=== PATIENT | male | born 1980 | race Caucasian/White ===

== ENCOUNTER 2022-10-07 16:30 | Outpatient (RCR) | payer OTHER, SELFPAY ==
--- NOTE | 2022-07-08 16:00 | PT.OIE ---
Current Diagnoses Stiffness of right hip, not elsewhere classified (07/08/22) Stiffness of other specified joint, not elsewhere classified (07/08/22) Dorsalgia, unspecified (07/08/22) Visit Care Team Role Provider Type Marquez Mao Family Provider Non-Staff Primary Care Provider Specialty: Medical Address: [address] [place] [address], [id number] Email: Attending Provider Referring Provider Specialty: Address: Phone: Fax: Email: Physical Therapy Initial Evaluation PT-OP-A Visit Information Start: 07/08/22 17:38 Freq: Status: Active Protocol: Document 07/08/22 15:15 DCW (Rec: 07/08/22 17:58 [facility] [id number]) Out-Patient Physical Therapy Visit Information Visit Information Visit Type Initial Evaluation Visit Start Time 15:15 Visit Stop Time 16:00 Total Visit Minutes 45 Visit Number 1 Number of STRIPING MACHINE OPERATOR Visits 0 Evaluation Information Evaluation Date 07/08/22 PT-OP-B Current Condition Start: 07/08/22 17:38 Freq: Status: Active Protocol: Document 07/08/22 15:15 DCW (Rec: 07/08/22 17:58 DC [id number]) Current Condition History of Current Condition Onset Date ~2015 Current Complaints Low back pain History of Current Condition Pt is a 42 year old male presenting with a ~7 year history of low back pain, unsure shat exactly causes it, however he does know that recently lifting his three year old has been making him feel worse. Notices he is no longer able to sleep on his stomach due to pain, and he is at his worst first thing in the morning or after an extended period of not moving. Pt also notes sitting in a softer chair is significantly worse. Pt reports two episodes of a more intense flare-up over the past year, both of which laid me up for about a week. Pt finds that being more active is helpful, especially when he goes out running, although admits that after he runs, he typically spends about 30 minutes stretching, which might be what is actually helping to loosen him up. Prior Treatments and Tests Pt reports no imaging, has been given muscle relaxors, does not feel like they did much. 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 PT-OP-C Subjective Start: 07/08/22 17:38 Freq: Status: Active Protocol: Document 07/08/22 15:15 DCW (Rec: 07/08/22 17:58 DCW [id number]) OP-PT Subjective Patient Comments Patient Comments It's actually not too bad right now. I originally got a referral to come in April, but then I was doing some travel, and then we had an illness going through or house , so it took a while for me to get in. Patient Reported Progress Improving Patient Questionnaires Oswestry Low Back Index Oswestry Score 650 = 12% Oswestry Impairment 1 to 19% Impaired (Score 1-19) OP-PT Pain Assessment Pain Assessment Grid Paper Pain Assessment Grid Completed Yes Location Bilateral Lower Back Intensity 3 Scale Used Numeric (0 - 10) Description Aching,Dull,Tightness PT-OP-F Manual Assessment Start: 07/08/22 17:38 Freq: Status: Active Protocol: Document 07/08/22 15:15 DCW (Rec: 07/09/22 09:39 DCW [id number]) Manual Assessments Soft Tissue Assessment Soft Tissue Mobility Assessment Noticeable swelling and inflammation along right side, immediately lateral to lumbar spine, as well as moderate tone with tenderness to palpation 2/4: pain with wincing. Additionally increased tone in right low back, posterior obliques and QL. Joint Mobility Assessment Joint Mobility Assessment Tenderness in lumbar vertebrae , specifically L3 with P->A mobilization PT-OP-K Range of Motion Start: 07/08/22 17:38 Freq: Status: Active Protocol: Document 07/08/22 15:15 DCW (Rec: 07/08/22 17:58 DCW [id number]) Lumbar Spine Range of Motion Lumbar Spine Active Degrees Testing Position Standing Flexion 60 Extension 10 Lateral Flexion Left 54 Lateral Flexion Right 55 Comments Lateral flexion measured in cm from floor to finger tips Hip Goniometric Range of Motion Hip Right Passive Testing Position Supine Internal Rotation 20 External Rotation 30 Left Passive Testing Position Supine Internal Rotation 35 External Rotation 30 PT-OP-L Special Tests Start: 07/08/22 17:38 Freq: Status: Active Protocol: Document 07/08/22 15:15 DCW (Rec: 07/09/22 09:39 DCW [id number]) Special Tests Lumbar Spine Special Tests Straight Leg Raise Test Results Positive R ipsilateral lumbar pain Standing Flexion Test Results Negative Slump Test Results Positive R lumbar pain Compression Test Results Positive R lumbar pain during left side-bending Manual Traction Test Results Negative A-P Shearing Test Results Positive R lumbar pain Hip Special Tests AJAY Test Results Positive R ipsilateral lumbar pain PT-OP-Q Treatments Start: 07/08/22 17:38 Freq: Status: Active Protocol: Document 07/08/22 15:15 DCW (Rec: 07/08/22 17:58 DCW [id number]) Therapeutic Exercises Sidelying Exercises Clamshell Sidelying Exercise Name Clamshell Resistance Lv 3 PT-OP-T Assessment and Plan Start: 07/08/22 17:38 Freq: Status: Active Protocol: Document 07/08/22 15:15 DCW (Rec: 07/09/22 11:07 [facility] [id number]) Physical Therapy Assessment Evaluation Complexity Number of Personal Factors/Comorbidities 0 Number of Body Systems Impaired 3 Clinical Presentation at Evaluation Stable Impairments Impairments Functional Activities, Functional Mobility,Pain,ROM, Soft Tissue Mobility,Strength, Tone Goals Two Impairment Pt has limited right hip ROM Sergeant Missile Crewman Goal (LTG) Pt to demonstrate PROM IR of right hip improved by at least 10?, increased from 20? to 30 ?, in order to improve ability to sit on floor playing with his kids. LTG Duration 09/07/22 One Impairment Pt does not have an appropriate home exercise program Short Term Goal (STG) Pt to be independent and compliant with an appropriate HEP STG Duration 08/08/22 Assessment Summary Assessment Pt presents with signs and symptoms consistent with referring diagnosis. Pt experiences waxing and waning low back pain, and, although he is not in the middle of a flare-up currently, still showing signs of edema and inflammation along the right side of his lumbar spine, increased tone in paraspinals, and limited right hip ROM. Pt will likely benefit from skilled therapy focusing on improving hip and low back mobility, decreasing tone, education on management of inflammation, and instruction on stretching and strengthening of low back and core. Physical Therapy Plan Frequency and Duration Frequency of Treatment 1-2x/week Plan of Care Start Date 07/08/22 Plan of Care End Date 09/07/22 Therapeutic Interventions Therapeutic Interventions Home Exercise Program,Joint Mobilizations,Manual Therapy, Neuromuscular Re-education, Patient/Caregiver Education, Self-Care/Home Management,Soft Tissue Mobilization, Therapeutic Activities, Therapeutic Exercises Modalities Cold Pack/Ice Massage,Hot Packs Next Visit Focus/Plan Next Note Type Treatment Note Next Visit Plan STM, flexibility, core strengthening, hip mobility
--- NOTE | 2022-07-08 16:00 | PT.OPPOC ---
Physical, Occupational & Speech Therapy At [facility] Current Diagnoses Stiffness of right hip, not elsewhere classified (07/08/22) Stiffness of other specified joint, not elsewhere classified (07/08/22) Dorsalgia, unspecified (07/08/22) Visit Care Team Role Provider Type Marquez Mao Family Provider Non-Staff Primary Care Provider Specialty: Medical Address: [address] [place] [address], [id number] Email: Attending Provider Referring Provider Specialty: Address: Phone: Fax: Email: Plan Of Care PT-OP-T Assessment and Plan Start: 07/08/22 17:38 Freq: Status: Active Protocol: Document 07/08/22 15:15 DCW (Rec: 07/09/22 11:07 DCW [id number]) Physical Therapy Assessment Evaluation Complexity Number of Personal Factors/Comorbidities 0 Number of Body Systems Impaired 3 Clinical Presentation at Evaluation Stable Impairments Impairments Functional Activities, Functional Mobility,Pain,ROM, Soft Tissue Mobility,Strength, Tone Goals Two Impairment Pt has limited right hip ROM Airport Security Screener Goal (LTG) Pt to demonstrate PROM IR of right hip improved by at least 10?, increased from 20? to 30 ?, in order to improve ability to sit on floor playing with his kids. LTG Duration 09/07/22 One Impairment Pt does not have an appropriate home exercise program Short Term Goal (STG) Pt to be independent and compliant with an appropriate HEP STG Duration 08/08/22 Assessment Summary Assessment Pt presents with signs and symptoms consistent with referring diagnosis. Pt experiences waxing and waning low back pain, and, although he is not in the middle of a flare-up currently, still showing signs of edema and inflammation along the right side of his lumbar spine, increased tone in paraspinals, and limited right hip ROM. Pt will likely benefit from skilled therapy focusing on improving hip and low back mobility, decreasing tone, education on management of inflammation, and instruction on stretching and strengthening of low back and core. Physical Therapy Plan Frequency and Duration Frequency of Treatment 1-2x/week Plan of Care Start Date 07/08/22 Plan of Care End Date 09/07/22 Therapeutic Interventions Therapeutic Interventions Home Exercise Program,Joint Mobilizations,Manual Therapy, Neuromuscular Re-education, Patient/Caregiver Education, Self-Care/Home Management,Soft Tissue Mobilization, Therapeutic Activities, Therapeutic Exercises Modalities Cold Pack/Ice Massage,Hot Packs Next Visit Focus/Plan Next Note Type Treatment Note Next Visit Plan STM, flexibility, core strengthening, hip mobility Plan of Care Dates Plan of Care Start Date 07/08/22 Plan of Care End Date 09/07/22 Electronically Signed by: Serge Garrett, PT 07/09/22 [id number] If you are in agreement with this Plan of Care, please return a signed and dated copy. I have reviewed this Plan of Care and certify that the skilled therapy services above are required to meet the patient?s needs. Physician Signature Date Printed Name and Credentials Clinical Instructor Signature Printed Name and Credentials
--- NOTE | 2022-07-10 16:02 | PT.OTN ---
Current Diagnoses Stiffness of right hip, not elsewhere classified (07/10/22) Stiffness of other specified joint, not elsewhere classified (07/10/22) Dorsalgia, unspecified (07/10/22) Physical Therapy Treatment Note PT-OP-A Visit Information Start: 07/08/22 17:38 Freq: Status: Active Protocol: Document 07/10/22 15:15 DCW (Rec: 07/10/22 16:02 DCW [id number]) Out-Patient Physical Therapy Visit Information Visit Information Visit Type Treatment Note Visit Start Time 15:15 Visit Stop Time 16:00 Total Visit Minutes 45 Visit Number 2 Number of POLE PEELING MACHINE OPERATOR Visits 0 Evaluation Information Evaluation Date 07/08/22 PT-OP-B Current Condition Start: 07/08/22 17:38 Freq: Status: Active Protocol: Document 07/08/22 15:15 DCW (Rec: 07/08/22 17:58 DCW [id number]) Current Condition History of Current Condition Onset Date ~2015 Current Complaints Low back pain History of Current Condition Pt is a 42 year old male presenting with a ~7 year history of low back pain, unsure shat exactly causes it, however he does know that recently lifting his three year old has been making him feel worse. Notices he is no longer able to sleep on his stomach due to pain, and he is at his worst first thing in the morning or after an extended period of not moving. Pt also notes sitting in a softer chair is significantly worse. Pt reports two episodes of a more intense flare-up over the past year, both of which laid me up for about a week. Pt finds that being more active is helpful, especially when he goes out running, although admits that after he runs, he typically spends about 30 minutes stretching, which might be what is actually helping to loosen him up. Prior Treatments and Tests Pt reports no imaging, has been given muscle relaxors, does not feel like they did much. 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 PT-OP-C Subjective Start: 07/08/22 17:38 Freq: Status: Active Protocol: Document 07/10/22 15:15 DCW (Rec: 07/10/22 16:02 DCW [id number]) OP-PT Subjective Patient Comments Patient Comments It doesn't really feel any different today. PT-OP-F Manual Assessment Start: 07/08/22 17:38 Freq: Status: Active Protocol: Document 07/08/22 15:15 DCW (Rec: 07/09/22 09:39 DCW [id number]) Manual Assessments Soft Tissue Assessment Soft Tissue Mobility Assessment Noticeable swelling and inflammation along right side, immediately lateral to lumbar spine, as well as moderate tone with tenderness to palpation 2/4: pain with wincing. Additionally increased tone in right low back, posterior obliques and QL. Joint Mobility Assessment Joint Mobility Assessment Tenderness in lumbar vertebrae , specifically L3 with P->A mobilization PT-OP-K Range of Motion Start: 07/08/22 17:38 Freq: Status: Active Protocol: Document 07/08/22 15:15 DCW (Rec: 07/08/22 17:58 DCW [id number]) Lumbar Spine Range of Motion Lumbar Spine Active Degrees Testing Position Standing Flexion 60 Extension 10 Lateral Flexion Left 54 Lateral Flexion Right 55 Comments Lateral flexion measured in cm from floor to finger tips Hip Goniometric Range of Motion Hip Right Passive Testing Position Supine Internal Rotation 20 External Rotation 30 Left Passive Testing Position Supine Internal Rotation 35 External Rotation 30 PT-OP-L Special Tests Start: 07/08/22 17:38 Freq: Status: Active Protocol: Document 07/08/22 15:15 DCW (Rec: 07/09/22 09:39 DCW [id number]) Special Tests Lumbar Spine Special Tests Straight Leg Raise Test Results Positive R ipsilateral lumbar pain Standing Flexion Test Results Negative Slump Test Results Positive R lumbar pain Compression Test Results Positive R lumbar pain during left side-bending Manual Traction Test Results Negative A-P Shearing Test Results Positive R lumbar pain Hip Special Tests AJAY Test Results Positive R ipsilateral lumbar pain PT-OP-Q Treatments Start: 07/08/22 17:38 Freq: Status: Active Protocol: Document 07/10/22 15:15 DCW (Rec: 07/10/22 16:02 DCW [id number]) Gym Equipment Therapeutic Ball Pelvic Tilts/Circles Exercise Details Pelvic tilts/circles Ball Size/Color Green - 65 cm Body Position Sitting Resisted Trunk Rotation Exercise Details Resisted Trunk Rotation Ball Size/Color Green - 65 cm Lv 3 Body Position Sitting Comments Slight discomfort during rotation to R LTR Exercise Details LTR Ball Size/Color Red - 55 cm Body Position Supine Therapeutic Exercises Sitting Exercises Pallof Press Sitting Exercise Name Pallof Press Side bilateral Resistance Lv 4 Standing Exercises Extension Standing Exercise Name Hip Extension Side bilateral Resistance Green Abduction Standing Exercise Name Hip Abduction Side bilateral Resistance Green Manual Therapy Treatment Soft Tissue Mobilization Paraspinals Body Location Lumbar Paraspinals Mobilization Type Sustained Pressure,Trigger Point Release Intensity/Depth Moderate Body Position Prone Joint Mobilizations L3 Joint L3 Direction P->A, Rotation Grade II PT-OP-T Assessment and Plan Start: 07/08/22 17:38 Freq: Status: Active Protocol: Document 07/10/22 15:15 DCW (Rec: 07/10/22 16:02 DCW [id number]) Physical Therapy Assessment Impairments Impairments Functional Activities, Functional Mobility,Pain,ROM, Soft Tissue Mobility,Strength, Tone Goals Two Impairment Pt has limited right hip ROM Chcf Goal (LTG) Pt to demonstrate PROM IR of right hip improved by at least 10?, increased from 20? to 30 ?, in order to improve ability to sit on floor playing with his kids. LTG Duration 09/07/22 One Impairment Pt does not have an appropriate home exercise program Short Term Goal (STG) Pt to be independent and compliant with an appropriate HEP STG Duration 08/08/22 Assessment Summary Assessment Pt tolerated treatment very well, continues to show limited mobility of L3 with joint mobilization and with rotation, did well with STM and joint mobility, did have some muscle soreness with resistance exercises. Physical Therapy Plan Frequency and Duration Frequency of Treatment 1-2x/week Plan of Care Start Date 07/08/22 Plan of Care End Date 09/07/22 Therapeutic Interventions Therapeutic Interventions Home Exercise Program,Joint Mobilizations,Manual Therapy, Neuromuscular Re-education, Patient/Caregiver Education, Self-Care/Home Management,Soft Tissue Mobilization, Therapeutic Activities, Therapeutic Exercises Modalities Cold Pack/Ice Massage,Hot Packs Next Visit Focus/Plan Next Note Type Treatment Note Next Visit Plan STM, flexibility, core strengthening, hip mobility
--- NOTE | 2022-07-14 11:15 | PT.OTN ---
Current Diagnoses Stiffness of right hip, not elsewhere classified (07/14/22) Stiffness of other specified joint, not elsewhere classified (07/14/22) Dorsalgia, unspecified (07/14/22) Physical Therapy Treatment Note PT-OP-A Visit Information Start: 07/08/22 17:38 Freq: Status: Active Protocol: Document 07/14/22 10:30 DCW (Rec: 07/14/22 11:14 DCW [id number]) Out-Patient Physical Therapy Visit Information Visit Information Visit Type Treatment Note Visit Start Time 10:30 Visit Stop Time 11:15 Total Visit Minutes 45 Visit Number 3 Number of OUTREACH LIBRARIAN Visits 0 Evaluation Information Evaluation Date 07/08/22 PT-OP-B Current Condition Start: 07/08/22 17:38 Freq: Status: Active Protocol: Document 07/08/22 15:15 DCW (Rec: 07/08/22 17:58 DCW [id number]) Current Condition History of Current Condition Onset Date ~2015 Current Complaints Low back pain History of Current Condition Pt is a 42 year old male presenting with a ~7 year history of low back pain, unsure shat exactly causes it, however he does know that recently lifting his three year old has been making him feel worse. Notices he is no longer able to sleep on his stomach due to pain, and he is at his worst first thing in the morning or after an extended period of not moving. Pt also notes sitting in a softer chair is significantly worse. Pt reports two episodes of a more intense flare-up over the past year, both of which laid me up for about a week. Pt finds that being more active is helpful, especially when he goes out running, although admits that after he runs, he typically spends about 30 minutes stretching, which might be what is actually helping to loosen him up. Prior Treatments and Tests Pt reports no imaging, has been given muscle relaxors, does not feel like they did much. 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 PT-OP-C Subjective Start: 07/08/22 17:38 Freq: Status: Active Protocol: Document 07/14/22 10:30 DCW (Rec: 07/14/22 11:14 DCW [id number]) OP-PT Subjective Patient Comments Patient Comments Admits he is a ittle more stiff today, notes he went rollerskating over the weekend , which created a little bit of soreness. PT-OP-F Manual Assessment Start: 07/08/22 17:38 Freq: Status: Active Protocol: Document 07/08/22 15:15 DCW (Rec: 07/09/22 09:39 DCW [id number]) Manual Assessments Soft Tissue Assessment Soft Tissue Mobility Assessment Noticeable swelling and inflammation along right side, immediately lateral to lumbar spine, as well as moderate tone with tenderness to palpation 2/4: pain with wincing. Additionally increased tone in right low back, posterior obliques and QL. Joint Mobility Assessment Joint Mobility Assessment Tenderness in lumbar vertebrae , specifically L3 with P->A mobilization PT-OP-K Range of Motion Start: 07/08/22 17:38 Freq: Status: Active Protocol: Document 07/08/22 15:15 DCW (Rec: 07/08/22 17:58 DCW [id number]) Lumbar Spine Range of Motion Lumbar Spine Active Degrees Testing Position Standing Flexion 60 Extension 10 Lateral Flexion Left 54 Lateral Flexion Right 55 Comments Lateral flexion measured in cm from floor to finger tips Hip Goniometric Range of Motion Hip Right Passive Testing Position Supine Internal Rotation 20 External Rotation 30 Left Passive Testing Position Supine Internal Rotation 35 External Rotation 30 PT-OP-L Special Tests Start: 07/08/22 17:38 Freq: Status: Active Protocol: Document 07/08/22 15:15 DCW (Rec: 07/09/22 09:39 DCW [id number]) Special Tests Lumbar Spine Special Tests Straight Leg Raise Test Results Positive R ipsilateral lumbar pain Standing Flexion Test Results Negative Slump Test Results Positive R lumbar pain Compression Test Results Positive R lumbar pain during left side-bending Manual Traction Test Results Negative A-P Shearing Test Results Positive R lumbar pain Hip Special Tests AJAY Test Results Positive R ipsilateral lumbar pain PT-OP-Q Treatments Start: 07/08/22 17:38 Freq: Status: Active Protocol: Document 07/14/22 10:30 DCW (Rec: 07/14/22 11:14 DCW [id number]) Gym Equipment Therapeutic Ball Pelvic Tilts/Circles Exercise Details Pelvic tilts/circles Ball Size/Color Green - 65 cm Body Position Sitting Resisted Trunk Rotation Exercise Details Resisted Trunk Rotation Ball Size/Color Green - 65 cm Lv 3 Body Position Sitting Comments Slight discomfort during rotation to R Therapeutic Exercises Sidelying Exercises Open Book Sidelying Exercise Name Open Book Side bilateral Sitting Exercises Pallof Press Sitting Exercise Name Pallof Press Side bilateral Resistance Lv 4 Standing Exercises ER/IR Standing Exercise Name Resisted ER/IR, half kneel on stool Other Exercises Cat/Camel Other Exercise Name Cat/Camel Child's Pose Other Exercise Name Child's Pose Manual Therapy Treatment Soft Tissue Mobilization Paraspinals Body Location Lumbar Paraspinals Mobilization Type Sustained Pressure,Trigger Point Release Intensity/Depth Moderate Body Position Prone Joint Mobilizations L3 Joint L3 Direction P->A, Rotation Grade II PT-OP-T Assessment and Plan Start: 07/08/22 17:38 Freq: Status: Active Protocol: Document 07/14/22 10:30 DCW (Rec: 07/14/22 11:14 DCW [id number]) Physical Therapy Assessment Impairments Impairments Functional Activities, Functional Mobility,Pain,ROM, Soft Tissue Mobility,Strength, Tone Goals Two Impairment Pt has limited right hip ROM Design And Sales Consultant Goal (LTG) Pt to demonstrate PROM IR of right hip improved by at least 10?, increased from 20? to 30 ?, in order to improve ability to sit on floor playing with his kids. LTG Duration 09/07/22 One Impairment Pt does not have an appropriate home exercise program Short Term Goal (STG) Pt to be independent and compliant with an appropriate HEP STG Duration 08/08/22 Assessment Summary Assessment Pt still experiencing some stiffness with all activities that result in right lumbar rotation, but noticeably less tone and inflammation along right paraspinals. Physical Therapy Plan Frequency and Duration Frequency of Treatment 1-2x/week Plan of Care Start Date 07/08/22 Plan of Care End Date 09/07/22 Therapeutic Interventions Therapeutic Interventions Home Exercise Program,Joint Mobilizations,Manual Therapy, Neuromuscular Re-education, Patient/Caregiver Education, Self-Care/Home Management,Soft Tissue Mobilization, Therapeutic Activities, Therapeutic Exercises Modalities Cold Pack/Ice Massage,Hot Packs Next Visit Focus/Plan Next Note Type Treatment Note Next Visit Plan STM, flexibility, core strengthening, hip mobility
--- NOTE | 2022-07-17 15:59 | PT.OTN ---
Current Diagnoses Stiffness of right hip, not elsewhere classified (07/17/22) Stiffness of other specified joint, not elsewhere classified (07/17/22) Dorsalgia, unspecified (07/17/22) Physical Therapy Treatment Note PT-OP-A Visit Information Start: 07/08/22 17:38 Freq: Status: Active Protocol: Document 07/17/22 15:15 DCW (Rec: 07/17/22 15:58 DCW [id number]) Out-Patient Physical Therapy Visit Information Visit Information Visit Type Treatment Note Visit Start Time 15:15 Visit Stop Time 16:00 Total Visit Minutes 45 Visit Number 4 Number of JACQUARD FIXER Visits 0 Evaluation Information Evaluation Date 07/08/22 PT-OP-B Current Condition Start: 07/08/22 17:38 Freq: Status: Active Protocol: Document 07/08/22 15:15 DCW (Rec: 07/08/22 17:58 DCW [id number]) Current Condition History of Current Condition Onset Date ~2015 Current Complaints Low back pain History of Current Condition Pt is a 42 year old male presenting with a ~7 year history of low back pain, unsure shat exactly causes it, however he does know that recently lifting his three year old has been making him feel worse. Notices he is no longer able to sleep on his stomach due to pain, and he is at his worst first thing in the morning or after an extended period of not moving. Pt also notes sitting in a softer chair is significantly worse. Pt reports two episodes of a more intense flare-up over the past year, both of which laid me up for about a week. Pt finds that being more active is helpful, especially when he goes out running, although admits that after he runs, he typically spends about 30 minutes stretching, which might be what is actually helping to loosen him up. Prior Treatments and Tests Pt reports no imaging, has been given muscle relaxors, does not feel like they did much. 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 PT-OP-C Subjective Start: 07/08/22 17:38 Freq: Status: Active Protocol: Document 07/17/22 15:15 DCW (Rec: 07/17/22 15:58 DCW [id number]) OP-PT Subjective Patient Comments Patient Comments Pt notes that Wednesday was worse following his PT appointment on Wednesday, felt it more down his thighs. Has been stretching out some, feeling better today. PT-OP-F Manual Assessment Start: 07/08/22 17:38 Freq: Status: Active Protocol: Document 07/08/22 15:15 DCW (Rec: 07/09/22 09:39 DCW [id number]) Manual Assessments Soft Tissue Assessment Soft Tissue Mobility Assessment Noticeable swelling and inflammation along right side, immediately lateral to lumbar spine, as well as moderate tone with tenderness to palpation 2/4: pain with wincing. Additionally increased tone in right low back, posterior obliques and QL. Joint Mobility Assessment Joint Mobility Assessment Tenderness in lumbar vertebrae , specifically L3 with P->A mobilization PT-OP-K Range of Motion Start: 07/08/22 17:38 Freq: Status: Active Protocol: Document 07/08/22 15:15 DCW (Rec: 07/08/22 17:58 DCW [id number]) Lumbar Spine Range of Motion Lumbar Spine Active Degrees Testing Position Standing Flexion 60 Extension 10 Lateral Flexion Left 54 Lateral Flexion Right 55 Comments Lateral flexion measured in cm from floor to finger tips Hip Goniometric Range of Motion Hip Right Passive Testing Position Supine Internal Rotation 20 External Rotation 30 Left Passive Testing Position Supine Internal Rotation 35 External Rotation 30 PT-OP-L Special Tests Start: 07/08/22 17:38 Freq: Status: Active Protocol: Document 07/08/22 15:15 DCW (Rec: 07/09/22 09:39 DCW [id number]) Special Tests Lumbar Spine Special Tests Straight Leg Raise Test Results Positive R ipsilateral lumbar pain Standing Flexion Test Results Negative Slump Test Results Positive R lumbar pain Compression Test Results Positive R lumbar pain during left side-bending Manual Traction Test Results Negative A-P Shearing Test Results Positive R lumbar pain Hip Special Tests AJAY Test Results Positive R ipsilateral lumbar pain PT-OP-Q Treatments Start: 07/08/22 17:38 Freq: Status: Active Protocol: Document 07/17/22 15:15 DCW (Rec: 07/17/22 15:58 DCW [id number]) Manual Therapy Treatment Soft Tissue Mobilization Paraspinals Body Location Lumbar Paraspinals Mobilization Type Sustained Pressure,Trigger Point Release Intensity/Depth Moderate Body Position Prone Joint Mobilizations L3 Joint L3 Direction P->A, Rotation Grade II Other Other Manual Treatments Contract/Relax resisted Hip hiking for R QL PT-OP-T Assessment and Plan Start: 07/08/22 17:38 Freq: Status: Active Protocol: Document 07/17/22 15:15 DCW (Rec: 07/17/22 15:58 DCW [id number]) Physical Therapy Assessment Impairments Impairments Functional Activities, Functional Mobility,Pain,ROM, Soft Tissue Mobility,Strength, Tone Goals Two Impairment Pt has limited right hip ROM Tractor Technician Goal (LTG) Pt to demonstrate PROM IR of right hip improved by at least 10?, increased from 20? to 30 ?, in order to improve ability to sit on floor playing with his kids. LTG Duration 09/07/22 One Impairment Pt does not have an appropriate home exercise program Short Term Goal (STG) Pt to be independent and compliant with an appropriate HEP STG Duration 08/08/22 Assessment Summary Assessment Focused today more on manual treatment and soft tissue work due to pt complaints of flare -ups following previous PT appointments. Pt working on getting further insurance authorization for PT Physical Therapy Plan Frequency and Duration Frequency of Treatment 1-2x/week Plan of Care Start Date 07/08/22 Plan of Care End Date 09/07/22 Therapeutic Interventions Therapeutic Interventions Home Exercise Program,Joint Mobilizations,Manual Therapy, Neuromuscular Re-education, Patient/Caregiver Education, Self-Care/Home Management,Soft Tissue Mobilization, Therapeutic Activities, Therapeutic Exercises Modalities Cold Pack/Ice Massage,Hot Packs Next Visit Focus/Plan Next Note Type Treatment Note Next Visit Plan STM, flexibility, core strengthening, hip mobility
--- NOTE | 2022-09-07 15:34 | PT.OTN ---
Current Diagnoses Stiffness of right hip, not elsewhere classified (09/07/22) Stiffness of other specified joint, not elsewhere classified (09/07/22) Dorsalgia, unspecified (09/07/22) Physical Therapy Treatment Note PT-OP-A Visit Information Start: 07/08/22 17:38 Freq: Status: Active Protocol: Document 09/07/22 14:45 DCW (Rec: 09/07/22 15:34 DCW [id number]) Out-Patient Physical Therapy Visit Information Visit Information Visit Type Progress Note Visit Start Time 14:45 Visit Stop Time 15:30 Total Visit Minutes 45 Visit Number 5 Number of CAP BLOCKER Visits 0 Evaluation Information Evaluation Date 07/08/22 PT-OP-B Current Condition Start: 07/08/22 17:38 Freq: Status: Active Protocol: Document 07/08/22 15:15 DCW (Rec: 07/08/22 17:58 DCW [id number]) Current Condition History of Current Condition Onset Date ~2015 Current Complaints Low back pain History of Current Condition Pt is a 42 year old male presenting with a ~7 year history of low back pain, unsure shat exactly causes it, however he does know that recently lifting his three year old has been making him feel worse. Notices he is no longer able to sleep on his stomach due to pain, and he is at his worst first thing in the morning or after an extended period of not moving. Pt also notes sitting in a softer chair is significantly worse. Pt reports two episodes of a more intense flare-up over the past year, both of which laid me up for about a week. Pt finds that being more active is helpful, especially when he goes out running, although admits that after he runs, he typically spends about 30 minutes stretching, which might be what is actually helping to loosen him up. Prior Treatments and Tests Pt reports no imaging, has been given muscle relaxors, does not feel like they did much. 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 PT-OP-C Subjective Start: 07/08/22 17:38 Freq: Status: Active Protocol: Document 09/07/22 14:45 DCW (Rec: 09/07/22 15:34 DCW [id number]) OP-PT Subjective Patient Comments Patient Comments Pt notes he took a three week trip and did a lot of stretching, however since getting back he has been busy with renovations and has not been stretching. Neither way has made much of a difference in his back pain. Continues to hurt most when trying tostraighten up after leaning forward for an extended time, or getting down and playing with his child. PT-OP-F Manual Assessment Start: 07/08/22 17:38 Freq: Status: Active Protocol: Document 09/07/22 14:45 DCW (Rec: 09/07/22 15:03 DCW [id number]) Manual Assessments Soft Tissue Assessment Soft Tissue Mobility Assessment Moderate tone with tenderness to palpation 2/4: pain with wincing. Additionally increased tone in right low back, posterior obliques and QL. Joint Mobility Assessment Joint Mobility Assessment Tenderness in lumbar vertebrae , specifically L3 with P->A mobilization, hypotonia along lumbar spine PT-OP-K Range of Motion Start: 07/08/22 17:38 Freq: Status: Active Protocol: Document 09/07/22 14:45 DCW (Rec: 09/07/22 15:03 DCW [id number]) Lumbar Spine Range of Motion Lumbar Spine Active Degrees Testing Position Standing Flexion 65 Extension 10 Lateral Flexion Left 54 Lateral Flexion Right 56 Comments Lateral flexion measured in cm from floor to finger tips Hip Goniometric Range of Motion Hip Right Passive Internal Rotation 30 External Rotation 35 Left Passive Internal Rotation 30 External Rotation 35 PT-OP-L Special Tests Start: 07/08/22 17:38 Freq: Status: Active Protocol: Document 09/07/22 14:45 DCW (Rec: 09/07/22 15:03 DCW [id number]) Special Tests Lumbar Spine Special Tests Straight Leg Raise Test Results Negative Standing Flexion Test Results Negative Manual Traction Test Results Negative A-P Shearing Test Results Negative Hip Special Tests AJAY Test Results Positive R ipsilateral lumbar pain PT-OP-Q Treatments Start: 07/08/22 17:38 Freq: Status: Active Protocol: Document 09/07/22 14:45 DCW (Rec: 09/07/22 15:34 DCW [id number]) Therapeutic Exercises Supine Exercises Single KtC Supine Exercise Name Single KtC Side bilateral Hamstring Stretch Supine Exercise Name HS stretch Side bilateral Sidelying Exercises Open Book Sidelying Exercise Name Open Book Side bilateral Other Exercises Child's Pose Other Exercise Name Child's Pose Manual Therapy Treatment Soft Tissue Mobilization Paraspinals Body Location Lumbar Paraspinals Mobilization Type Sustained Pressure,Trigger Point Release Intensity/Depth Moderate Body Position Prone Joint Mobilizations L3 Joint L1-L5 Direction P->A Grade III PT-OP-T Assessment and Plan Start: 07/08/22 17:38 Freq: Status: Active Protocol: Document 09/07/22 14:45 DCW (Rec: 09/07/22 15:34 DCW [id number]) Physical Therapy Assessment Impairments Impairments Functional Activities, Functional Mobility,Pain,ROM, Soft Tissue Mobility,Strength, Tone Goals Two Impairment Pt has limited right hip ROM Usp Goal (LTG) Pt to demonstrate PROM IR of right hip improved by at least 10?, increased from 20? to 30 ?, in order to improve ability to sit on floor playing with his kids. LTG Duration 10/12/22 One Impairment Pt does not have an appropriate home exercise program Short Term Goal (STG) Pt to be independent and compliant with an appropriate HEP STG Duration 10/08/22 Assessment Summary Assessment Pt showing some good improvement with special testing and manual assessment, significant improvement in soft tissue manual assessment, no indications of continues inflammation and edema. Would likely benefit from skilled therapy focusing on improved flexibility, core strength, and joint mobilizations. Pt would also likely benefit from radiographs or other advanced imaging due to significant hypomobility of lumbar spine. Physical Therapy Plan Frequency and Duration Frequency of Treatment 1-2x/week Plan of Care Start Date 09/07/22 Plan of Care End Date 10/22/22 Therapeutic Interventions Therapeutic Interventions Home Exercise Program,Joint Mobilizations,Manual Therapy, Neuromuscular Re-education, Patient/Caregiver Education, Self-Care/Home Management,Soft Tissue Mobilization, Therapeutic Activities, Therapeutic Exercises Modalities Cold Pack/Ice Massage,Hot Packs Next Visit Focus/Plan Next Note Type Treatment Note Next Visit Plan STM, flexibility, core strengthening, hip mobility
--- NOTE | 2022-09-07 15:34 | PT.OPPOC ---
Physical, Occupational & Speech Therapy At [facility] Current Diagnoses Stiffness of right hip, not elsewhere classified (09/07/22) Stiffness of other specified joint, not elsewhere classified (09/07/22) Dorsalgia, unspecified (09/07/22) Visit Care Team Role Provider Type Marquez Mao Family Provider Non-Staff Primary Care Provider Specialty: Medical Address: [address] [place] [address], [id number] Email: Attending Provider Referring Provider Specialty: Address: Phone: Fax: Email: Plan Of Care PT-OP-T Assessment and Plan Start: 07/08/22 17:38 Freq: Status: Active Protocol: Document 09/07/22 14:45 DCW (Rec: 09/07/22 15:34 DCW [id number]) Physical Therapy Assessment Impairments Impairments Functional Activities, Functional Mobility,Pain,ROM, Soft Tissue Mobility,Strength, Tone Goals Two Impairment Pt has limited right hip ROM Haul Truck Driver Goal (LTG) Pt to demonstrate PROM IR of right hip improved by at least 10?, increased from 20? to 30 ?, in order to improve ability to sit on floor playing with his kids. LTG Duration 10/12/22 One Impairment Pt does not have an appropriate home exercise program Short Term Goal (STG) Pt to be independent and compliant with an appropriate HEP STG Duration 10/08/22 Assessment Summary Assessment Pt showing some good improvement with special testing and manual assessment, significant improvement in soft tissue manual assessment, no indications of continues inflammation and edema. Would likely benefit from skilled therapy focusing on improved flexibility, core strength, and joint mobilizations. Pt would also likely benefit from radiographs or other advanced imaging due to significant hypomobility of lumbar spine. Physical Therapy Plan Frequency and Duration Frequency of Treatment 1-2x/week Plan of Care Start Date 09/07/22 Plan of Care End Date 10/22/22 Therapeutic Interventions Therapeutic Interventions Home Exercise Program,Joint Mobilizations,Manual Therapy, Neuromuscular Re-education, Patient/Caregiver Education, Self-Care/Home Management,Soft Tissue Mobilization, Therapeutic Activities, Therapeutic Exercises Modalities Cold Pack/Ice Massage,Hot Packs Next Visit Focus/Plan Next Note Type Treatment Note Next Visit Plan STM, flexibility, core strengthening, hip mobility Plan of Care Dates Plan of Care Start Date 09/07/22 Plan of Care End Date 10/22/22 Electronically Signed by: Serge Garrett, PT 09/07/22 1534 If you are in agreement with this Plan of Care, please return a signed and dated copy. I have reviewed this Plan of Care and certify that the skilled therapy services above are required to meet the patient?s needs. Physician Signature Date Printed Name and Credentials Clinical Instructor Signature Printed Name and Credentials
--- NOTE | 2022-09-09 16:27 | PT.OTN ---
Current Diagnoses Stiffness of right hip, not elsewhere classified (09/09/22) Stiffness of other specified joint, not elsewhere classified (09/09/22) Dorsalgia, unspecified (09/09/22) Physical Therapy Treatment Note PT-OP-A Visit Information Start: 07/08/22 17:38 Freq: Status: Active Protocol: Document 09/09/22 15:45 DCW (Rec: 09/09/22 16:24 DCW [id number]) Out-Patient Physical Therapy Visit Information Visit Information Visit Type Treatment Note Visit Start Time 15:45 Visit Stop Time 16:30 Total Visit Minutes 45 Visit Number 6 Number of PROFESSOR OF MUSICOLOGY Visits 0 Evaluation Information Evaluation Date 07/08/22 PT-OP-B Current Condition Start: 07/08/22 17:38 Freq: Status: Active Protocol: Document 07/08/22 15:15 DCW (Rec: 07/08/22 17:58 DCW [id number]) Current Condition History of Current Condition Onset Date ~2015 Current Complaints Low back pain History of Current Condition Pt is a 42 year old male presenting with a ~7 year history of low back pain, unsure shat exactly causes it, however he does know that recently lifting his three year old has been making him feel worse. Notices he is no longer able to sleep on his stomach due to pain, and he is at his worst first thing in the morning or after an extended period of not moving. Pt also notes sitting in a softer chair is significantly worse. Pt reports two episodes of a more intense flare-up over the past year, both of which laid me up for about a week. Pt finds that being more active is helpful, especially when he goes out running, although admits that after he runs, he typically spends about 30 minutes stretching, which might be what is actually helping to loosen him up. Prior Treatments and Tests Pt reports no imaging, has been given muscle relaxors, does not feel like they did much. 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 PT-OP-C Subjective Start: 07/08/22 17:38 Freq: Status: Active Protocol: Document 09/09/22 15:45 DCW (Rec: 09/09/22 16:24 DCW [id number]) OP-PT Subjective Patient Comments Patient Comments I was a little stiffer today. Notes he was able to get an x-ray yesterday, hoping to have results in the next few days. PT-OP-F Manual Assessment Start: 07/08/22 17:38 Freq: Status: Active Protocol: Document 09/07/22 14:45 DCW (Rec: 09/07/22 15:03 DCW [id number]) Manual Assessments Soft Tissue Assessment Soft Tissue Mobility Assessment Moderate tone with tenderness to palpation 2/4: pain with wincing. Additionally increased tone in right low back, posterior obliques and QL. Joint Mobility Assessment Joint Mobility Assessment Tenderness in lumbar vertebrae , specifically L3 with P->A mobilization, hypotonia along lumbar spine PT-OP-K Range of Motion Start: 07/08/22 17:38 Freq: Status: Active Protocol: Document 09/07/22 14:45 DCW (Rec: 09/07/22 15:03 DCW [id number]) Lumbar Spine Range of Motion Lumbar Spine Active Degrees Testing Position Standing Flexion 65 Extension 10 Lateral Flexion Left 54 Lateral Flexion Right 56 Comments Lateral flexion measured in cm from floor to finger tips Hip Goniometric Range of Motion Hip Right Passive Internal Rotation 30 External Rotation 35 Left Passive Internal Rotation 30 External Rotation 35 PT-OP-L Special Tests Start: 07/08/22 17:38 Freq: Status: Active Protocol: Document 09/07/22 14:45 DCW (Rec: 09/07/22 15:03 DCW [id number]) Special Tests Lumbar Spine Special Tests Straight Leg Raise Test Results Negative Standing Flexion Test Results Negative Manual Traction Test Results Negative A-P Shearing Test Results Negative Hip Special Tests AJAY Test Results Positive R ipsilateral lumbar pain PT-OP-Q Treatments Start: 07/08/22 17:38 Freq: Status: Active Protocol: Document 09/09/22 15:45 DCW (Rec: 09/09/22 16:24 DCW [id number]) Therapeutic Exercises Supine Exercises Single KtC Supine Exercise Name Single KtC Side bilateral Hamstring Stretch Supine Exercise Name HS stretch Side bilateral Comments Contract relax Sidelying Exercises Lumbar rotation Sidelying Exercise Name Lumbar rotation stretch Comments Manual rotatio from PT Other Exercises Bird-Dog Other Exercise Name Bird-dog Side bilateral Thread the Needle Other Exercise Name Thread the Needle Side bilateral Manual Therapy Treatment Soft Tissue Mobilization Paraspinals Body Location Lumbar Paraspinals Mobilization Type Sustained Pressure,Trigger Point Release Intensity/Depth Moderate Body Position Prone Joint Mobilizations L3 Joint L1-L5 Direction P->A Grade III PT-OP-T Assessment and Plan Start: 07/08/22 17:38 Freq: Status: Active Protocol: Document 09/09/22 15:45 DCW (Rec: 09/09/22 16:24 DCW [id number]) Physical Therapy Assessment Impairments Impairments Functional Activities, Functional Mobility,Pain,ROM, Soft Tissue Mobility,Strength, Tone Goals Two Impairment Pt has limited right hip ROM Vending Service Technician Goal (LTG) Pt to demonstrate PROM IR of right hip improved by at least 10?, increased from 20? to 30 ?, in order to improve ability to sit on floor playing with his kids. LTG Duration 10/12/22 One Impairment Pt does not have an appropriate home exercise program Short Term Goal (STG) Pt to be independent and compliant with an appropriate HEP STG Duration 10/08/22 Assessment Summary Assessment Pt did well with new exercises , should have results of x-ray by next visit, if not, contact PCP for copy of results. Physical Therapy Plan Frequency and Duration Frequency of Treatment 1-2x/week Plan of Care Start Date 09/07/22 Plan of Care End Date 10/22/22 Therapeutic Interventions Therapeutic Interventions Home Exercise Program,Joint Mobilizations,Manual Therapy, Neuromuscular Re-education, Patient/Caregiver Education, Self-Care/Home Management,Soft Tissue Mobilization, Therapeutic Activities, Therapeutic Exercises Modalities Cold Pack/Ice Massage,Hot Packs Next Visit Focus/Plan Next Note Type Treatment Note Next Visit Plan STM, flexibility, core strengthening, hip mobility
--- NOTE | 2022-09-24 15:22 | PT.OTN ---
Current Diagnoses Stiffness of right hip, not elsewhere classified (09/24/22) Stiffness of other specified joint, not elsewhere classified (09/24/22) Dorsalgia, unspecified (09/24/22) Physical Therapy Treatment Note PT-OP-A Visit Information Start: 07/08/22 17:38 Freq: Status: Active Protocol: Document 09/24/22 14:33 SP (Rec: 09/24/22 15:44 SP [id number]) Out-Patient Physical Therapy Visit Information Visit Information Visit Type Treatment Note Visit Start Time 14:33 Visit Stop Time 15:22 Total Visit Minutes 49 Visit Number 7 Number of REFRACTORY MIXER Visits 1 Evaluation Information Evaluation Date 07/08/22 PT-OP-B Current Condition Start: 07/08/22 17:38 Freq: Status: Active Protocol: Document 07/08/22 15:15 DCW (Rec: 07/08/22 17:58 DCW [id number]) Current Condition History of Current Condition Onset Date ~2015 Current Complaints Low back pain History of Current Condition Pt is a 42 year old male presenting with a ~7 year history of low back pain, unsure shat exactly causes it, however he does know that recently lifting his three year old has been making him feel worse. Notices he is no longer able to sleep on his stomach due to pain, and he is at his worst first thing in the morning or after an extended period of not moving. Pt also notes sitting in a softer chair is significantly worse. Pt reports two episodes of a more intense flare-up over the past year, both of which laid me up for about a week. Pt finds that being more active is helpful, especially when he goes out running, although admits that after he runs, he typically spends about 30 minutes stretching, which might be what is actually helping to loosen him up. Prior Treatments and Tests Pt reports no imaging, has been given muscle relaxors, does not feel like they did much. 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 PT-OP-C Subjective Start: 07/08/22 17:38 Freq: Status: Active Protocol: Document 09/24/22 14:33 SP (Rec: 09/24/22 15:44 SP [id number]) OP-PT Subjective Patient Comments Patient Comments Pt reports felt little better after manual last tx. Brought [place] of [place] [employer] [place]. Scanning into EMR here at . Pt feels more HS PT-OP-F Manual Assessment Start: 07/08/22 17:38 Freq: Status: Active Protocol: Document 09/07/22 14:45 DCW (Rec: 09/07/22 15:03 DCW [id number]) Manual Assessments Soft Tissue Assessment Soft Tissue Mobility Assessment Moderate tone with tenderness to palpation 2/4: pain with wincing. Additionally increased tone in right low back, posterior obliques and QL. Joint Mobility Assessment Joint Mobility Assessment Tenderness in lumbar vertebrae , specifically L3 with P->A mobilization, hypotonia along lumbar spine PT-OP-K Range of Motion Start: 07/08/22 17:38 Freq: Status: Active Protocol: Document 09/07/22 14:45 DCW (Rec: 09/07/22 15:03 DCW [id number]) Lumbar Spine Range of Motion Lumbar Spine Active Degrees Testing Position Standing Flexion 65 Extension 10 Lateral Flexion Left 54 Lateral Flexion Right 56 Comments Lateral flexion measured in cm from floor to finger tips Hip Goniometric Range of Motion Hip Right Passive Internal Rotation 30 External Rotation 35 Left Passive Internal Rotation 30 External Rotation 35 PT-OP-L Special Tests Start: 07/08/22 17:38 Freq: Status: Active Protocol: Document 09/07/22 14:45 DCW (Rec: 09/07/22 15:03 DCW [id number]) Special Tests Lumbar Spine Special Tests Straight Leg Raise Test Results Negative Standing Flexion Test Results Negative Manual Traction Test Results Negative A-P Shearing Test Results Negative Hip Special Tests AJAY Test Results Positive R ipsilateral lumbar pain PT-OP-Q Treatments Start: 07/08/22 17:38 Freq: Status: Active Protocol: Document 09/24/22 14:33 SP (Rec: 09/24/22 15:44 SP [id number]) Therapeutic Exercises Supine Exercises Single KtC Supine Exercise Name Single KtC Side bilateral Reps/Minutes 60 Comments better ROM PPT post manual Hamstring Stretch Supine Exercise Name HS stretch Side bilateral Comments Contract relax and MWM with manual 90/90 therapist pressure w/ knee ext Sitting Exercises self STMs Sitting Exercise Name long sitting ball prox HS, stand theracane vs ball wall stand Side right Reps/Minutes 3 min total Comments good feedback response Standing Exercises avaiator daily dozed Standing Exercise Name 1, 2, 3, 6, 8, 10, 11 (see handout) Side bilateral Reps/Minutes 5 reps each Comments cued straight back with ROM tolerated Other Exercises Bird-Dog Other Exercise Name Bird-dog (avaitor daily dozen #11) Side bilateral Reps/Minutes sustained stretch 30 sec then active wt shift R and L Comments good feedback stretch Thread the Needle Other Exercise Name Thread the Needle Side bilateral Reps/Minutes x10 reps, hold 20 sec end range rotation stretch Comments reports little pinch RUE endrange R rotation, L LS pinch end R thread thru Child's Pose Other Exercise Name Child's Pose Equipment Used 1/2 foam roll under ankles Reps/Minutes 60 Comments cued reach out chest toward floor. Manual Therapy Treatment Soft Tissue Mobilization HS Body Location R Mobilization Type Myofascial Release,Strumming, Sustained Pressure,Other Intensity/Depth Deep Body Position Hooklying Comments manual and self use lacrosse ball Paraspinals Body Location Lumbar Paraspinals Mobilization Type Sustained Pressure,Trigger Point Release Intensity/Depth Moderate Body Position Prone Joint Mobilizations hip Joint R (90/90 inferior), piriformis stretch pos. (inferolateral glide) Direction inferior, inferolateral glide Grade II Body Position Hooklying Reps/Duration 1 min each pos w/ strap Comments with IR, little decrease hip IR improvement. PT-OP-T Assessment and Plan Start: 07/08/22 17:38 Freq: Status: Active Protocol: Document 09/24/22 14:33 SP (Rec: 09/24/22 15:44 SP [id number]) Physical Therapy Assessment Goals Two Impairment Pt has limited right hip ROM Soap Tender Goal (LTG) Pt to demonstrate PROM IR of right hip improved by at least 10?, increased from 20? to 30 ?, in order to improve ability to sit on floor playing with his kids. LTG Duration 10/12/22 One Impairment Pt does not have an appropriate home exercise program Short Term Goal (STG) Pt to be independent and compliant with an appropriate HEP 09/24/22: down dog, child's pose, added self sustained pressure HS lacrosse ball, avaitor daily dozen (yoga like mobility) STG Duration 10/08/22 progressed 09/24/22 Assessment Summary Assessment Pt responded well to manual and ed self application use lacrosse ball HS and theracane vs lacrosse ball wall ES with good feedback releases. Initiated aviator daily dozen mobility LS/ TS rotation (yoga like) with good feedback response LS and hips less tightness. Physical Therapy Plan Frequency and Duration Frequency of Treatment 1-2x/week Plan of Care Start Date 09/07/22 Plan of Care End Date 10/22/22 Therapeutic Interventions Therapeutic Interventions Home Exercise Program,Joint Mobilizations,Manual Therapy, Neuromuscular Re-education, Patient/Caregiver Education, Self-Care/Home Management,Soft Tissue Mobilization, Therapeutic Activities, Therapeutic Exercises Modalities Cold Pack/Ice Massage,Hot Packs Next Visit Focus/Plan Next Note Type Treatment Note Next Visit Plan STM, flexibility, core strengthening, hip mobility
--- NOTE | 2022-10-07 17:01 | PT.OTN ---
Current Diagnoses Stiffness of right hip, not elsewhere classified (10/07/22) Stiffness of other specified joint, not elsewhere classified (10/07/22) Dorsalgia, unspecified (10/07/22) Physical Therapy Treatment Note PT-OP-A Visit Information Start: 07/08/22 17:38 Freq: Status: Active Protocol: Document 10/07/22 16:30 DCW (Rec: 10/07/22 17:01 DCW [id number]) Out-Patient Physical Therapy Visit Information Visit Information Visit Type Discharge Summary Visit Note Pt requested leaving early due to work conflict Visit Start Time 16:30 Visit Stop Time 16:55 Total Visit Minutes 25 Visit Number 8 Number of INVESTIGATIONS CONSULTANT Visits 0 Evaluation Information Evaluation Date 07/08/22 PT-OP-B Current Condition Start: 07/08/22 17:38 Freq: Status: Active Protocol: Document 07/08/22 15:15 DCW (Rec: 07/08/22 17:58 DCW [id number]) Current Condition History of Current Condition Onset Date ~2015 Current Complaints Low back pain History of Current Condition Pt is a 42 year old male presenting with a ~7 year history of low back pain, unsure shat exactly causes it, however he does know that recently lifting his three year old has been making him feel worse. Notices he is no longer able to sleep on his stomach due to pain, and he is at his worst first thing in the morning or after an extended period of not moving. Pt also notes sitting in a softer chair is significantly worse. Pt reports two episodes of a more intense flare-up over the past year, both of which laid me up for about a week. Pt finds that being more active is helpful, especially when he goes out running, although admits that after he runs, he typically spends about 30 minutes stretching, which might be what is actually helping to loosen him up. Prior Treatments and Tests Pt reports no imaging, has been given muscle relaxors, does not feel like they did much. 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 PT-OP-C Subjective Start: 07/08/22 17:38 Freq: Status: Active Protocol: Document 10/07/22 16:30 DCW (Rec: 10/07/22 17:01 DCW [id number]) OP-PT Subjective Patient Comments Patient Comments Tightness is still there, felt better after she really dug in there last session. Able to use a standing desk at work, which seems to be helpful. PT-OP-F Manual Assessment Start: 07/08/22 17:38 Freq: Status: Active Protocol: Document 09/07/22 14:45 DCW (Rec: 09/07/22 15:03 DCW [id number]) Manual Assessments Soft Tissue Assessment Soft Tissue Mobility Assessment Moderate tone with tenderness to palpation 2/4: pain with wincing. Additionally increased tone in right low back, posterior obliques and QL. Joint Mobility Assessment Joint Mobility Assessment Tenderness in lumbar vertebrae , specifically L3 with P->A mobilization, hypotonia along lumbar spine PT-OP-K Range of Motion Start: 07/08/22 17:38 Freq: Status: Active Protocol: Document 09/07/22 14:45 DCW (Rec: 09/07/22 15:03 DCW [id number]) Lumbar Spine Range of Motion Lumbar Spine Active Degrees Testing Position Standing Flexion 65 Extension 10 Lateral Flexion Left 54 Lateral Flexion Right 56 Comments Lateral flexion measured in cm from floor to finger tips Hip Goniometric Range of Motion Hip Right Passive Internal Rotation 30 External Rotation 35 Left Passive Internal Rotation 30 External Rotation 35 PT-OP-L Special Tests Start: 07/08/22 17:38 Freq: Status: Active Protocol: Document 09/07/22 14:45 DCW (Rec: 09/07/22 15:03 DCW [id number]) Special Tests Lumbar Spine Special Tests Straight Leg Raise Test Results Negative Standing Flexion Test Results Negative Manual Traction Test Results Negative A-P Shearing Test Results Negative Hip Special Tests AJAY Test Results Positive R ipsilateral lumbar pain PT-OP-Q Treatments Start: 07/08/22 17:38 Freq: Status: Active Protocol: Document 10/07/22 16:30 DCW (Rec: 10/07/22 17:01 DCW [id number]) Manual Therapy Treatment Soft Tissue Mobilization Paraspinals Body Location Lumbar Paraspinals Mobilization Type Sustained Pressure,Trigger Point Release Intensity/Depth Moderate Body Position Prone Joint Mobilizations hip Joint R (90/90 inferior), piriformis stretch pos. (inferolateral glide) Direction inferior, inferolateral glide Grade II Body Position Hooklying Reps/Duration 1 min each pos w/ strap Comments with IR, little decrease hip IR improvement. L3 Joint L1-L5 Direction P->A Grade III PT-OP-T Assessment and Plan Start: 07/08/22 17:38 Freq: Status: Active Protocol: Document 10/07/22 16:30 DCW (Rec: 10/07/22 17:01 DCW [id number]) Physical Therapy Assessment Impairments Impairments Functional Activities, Functional Mobility,Pain,ROM, Soft Tissue Mobility,Strength, Tone Goals Two Impairment Pt has limited right hip ROM Office Services Manager Goal (LTG) Pt to demonstrate PROM IR of right hip improved by at least 10?, increased from 20? to 30 ?, in order to improve ability to sit on floor playing with his kids. LTG Duration 10/12/22 One Impairment Pt does not have an appropriate home exercise program Short Term Goal (STG) Pt to be independent and compliant with an appropriate HEP STG Duration 10/08/22 Assessment Summary Assessment Pt leaving for a training exercise for the next 6+ weeks , will likely be out of state for longer than this, agreeable to discharge at this time, with understanding that when he has returned, if he requires further intervention, he will require a new referral from his PCP to return to PT. Otherwise, pt is showing some good improvement , mild paraspinal tone and significant decrease in tenderness with lumbar vertebral mobs. Noting improved hip mobility. Physical Therapy Plan Frequency and Duration Frequency of Treatment 1-2x/week Plan of Care Start Date 09/07/22 Plan of Care End Date 10/22/22 Therapeutic Interventions Therapeutic Interventions Home Exercise Program,Joint Mobilizations,Manual Therapy, Neuromuscular Re-education, Patient/Caregiver Education, Self-Care/Home Management,Soft Tissue Mobilization, Therapeutic Activities, Therapeutic Exercises Modalities Cold Pack/Ice Massage,Hot Packs Discharge Physical Therapy Discharge Reasons No Longer Attending PT Next Visit Focus/Plan Next Note Type Discharge Summary
== END 2022-10-08 14:47 | disposition home or self-care (01) ==
LOC: PHYS 16:30
PROVIDERS: Absent Provider Student in an Organized Health Care Education/Training Program; Family Provider Student in an Organized Health Care Education/Training Program; PCP Student in an Organized Health Care Education/Training Program; Visit Provider Student in an Organized Health Care Education/Training Program
DX: M54.9 Dorsalgia, unspecified (principal); M25.69 Stiffness of other specified joint, not elsewhere classified; M25.651 Stiffness of right hip, not elsewhere classified
CPT/HCPCS: 97110; 97140; 97161